=== PATIENT | female | born 1980 | race Caucasian/White ===

== ENCOUNTER 2017-10-30 20:35 | Emergency (ER) | payer OTHER ==
[~2017-10-30] VITALS: Ht 170.2 cm; Wt 90.7 kg
[~2017-10-30 20:35] MED LIST: BENTYL PO; BYSTOLIC10 MG PO; BYSTOLIC2.5 MG PO; CYCLOBENZAPRINE10 MG PO; HYDROCHLOROTHIAZIDE PO; KLOR-CON M1010 MEQ PO; SYNTHROID150 MCG PO; TRIAMTERENE-HC1 EAC2 PO; Z.0.ADDERALL 30 MG30 PO; Z.0.ORACEA40 MG PO; Z.0.SYNTHROID137 MCG; Z.0.VALTREX1000 MG; Z.1.HYDROCODON-ACE1
[2017-10-30 23:30] LABS: BASOPHILS # (AUTO) 0.1 (0.0-0.1); BASOPHILS % 0.6 % (0.0-1.0); EOSINOPHILS # (AUTO) 0.1 (0.0-0.4); HEMATOCRIT 36.4 % (34.2-44.1); HEMOGLOBIN 11.5 g/dL (12.0-16.0); LYMPHOCYTES # (AUTO) 3.3 (1.0-3.2); LYMPHOCYTES % 34.4 % (18.0-39.1); MEAN CORPUSCULAR HEMOGLOBIN 24.7 pg (28-32); MEAN CORPUSCULAR HGB CONC 31.6 g/dL (31-35); MEAN CORPUSCULAR VOLUME 78.3 fL (81-99); MONOCYTES # (AUTO) 0.7 (0.2-0.8); MONOCYTES % 7.1 % (4.4-11.3); NEUTROPHILS # (AUTO) 5.5 (2.1-6.9); NEUTROPHILS % 56.7 % (38.7-80.0); PLATELET COUNT 413 x10e3/uL (140-360); RED BLOOD COUNT 4.65 x10e6/uL (3.6-5.1); RED CELL DISTRIBUTION WIDTH 15.3 % (11.7-14.4)
[2017-10-30 23:36] LABS: BILIRUBIN,URINE NEGATIVE (NEGATIVE); CLARITY,URINE CLEAR (CLEAR); COLOR,URINE YELLOW (YELLOW); KETONES,URINE NEGATIVE (NEGATIVE); LEUKOCYTE ESTERASE ,URINE NEGATIVE (NEGATIVE); NITRITE,URINE NEGATIVE (NEGATIVE); PROTEIN,URINE DIPSTICK NEGATIVE (NEGATIVE); URINE UROBILINOGEN 0.2 mg/dL (0.2 - 1)
[2017-10-30 23:46] LABS: ALANINE AMINOTRANSFERASE 24 IU/L (0-55); ALBUMIN 4.3 g/dL (3.5-5.0); ALBUMIN/GLOBULIN RATIO 1.3 (0.8-2.0); ALKALINE PHOSPHATASE 61 IU/L (40-150); ANION GAP 14.9 mmol/L (8-16); BLOOD UREA NITROGEN 12 mg/dL (7-26); BUN/CREATININE RATIO 15 (6-25); CALCIUM 9.9 mg/dL (8.4-10.2); CARBON DIOXIDE 24 mmol/L (22-29); CHLORIDE 104 mmol/L (98-107); CREATININE, SERUM 0.82 mg/dL (0.57-1.11); EST GLOMERULAR FILTRATION RATE > 60 ML/MIN (60-); GLUCOSE 83 mg/dL (74-118); POTASSIUM 3.9 mmol/L (3.5-5.1); SODIUM 139 mmol/L (136-145)
[2017-10-30 23:50] LABS: BACTERIA,URINE RARE /HPF; EPITHELIAL CELLS,URINE RARE /LPF
--- NOTE | 2017-10-31 00:50 | Diagnostic Imaging Report ---
EXAM: US PELVIC DOPPLER LTD, US TRANSVAGINAL INDICATION: Heavy abnormal bleeding, right lower quadrant pain, evaluate for torsion COMPARISON: None TECHNIQUE: Grayscale transverse and sagittal transabdominal and transvaginal images were obtained of the pelvis. Transvaginal images were necessary to better assess anatomic detail. The ovaries were examined with grayscale, color Doppler, and spectral waveform analysis. FINDINGS: Uterus Orientation: retropositioned Size: 9 x 4.7 x 6 cm, heterogeneous echotexture Mass: Ill-defined hypoechoic area posterior to the endometrium measuring approximately 2 x 1.7 x 1.2 cm Cervix: Normal Endometrium: Thickness:0.9 cm, Normal. Appearance: Homogeneous echotexture without focal thickening. Right ovary: Size: 6.8 x 4.0 x 4.9 cm Mass/Cyst: Simple 5.6 x 2.7 x 4.3 cm right ovarian cyst Vascularity: Normal venous and arterial color flow and waveforms. Left ovary: Size: 3.1 x 1.8 x 1.9 cm Mass/Cyst: None Vascularity: Normal venous and arterial color flow and waveforms. Adnexa: Normal Cul-de-sac: No free fluid IMPRESSION: 1. Findings which can be seen with adenomyosis. Focal 2 cm posterior adenomyoma or fibroid. Consider nonemergent MRI for further assessment. 2. Asymmetric enlargement of the right ovary by a 5.6 cm simple cyst. Cannot entirely exclude intermittent torsion/detorsion in the proper clinical setting. Signed by: Dr Camryn Montiel MD on 10/31/2017 12:47 AM
[2017-10-31 01:01] VITALS: BP 128/80
== END 2017-10-31 01:16 | disposition home or self-care (01) ==
LOC: ER 20:35
DX: N93.8 Other specified abnormal uterine and vaginal bleeding (principal); N83.201 Unspecified ovarian cyst, right side
CPT/HCPCS: 36415; 76830; 80053; 81001; 84702; 85025; 93976; 99283

== ENCOUNTER → 2020-02-26 | Day surgery (SDC) | payer OTHER ==
[~2020-02-26] MED LIST changes: +EPHEDRINE SULFATE INJ 50 MG/ML VIAL ONE; +FENTANYL CITRATE/PF 100MCG/2 ML INJ ONE; +HYOSCYAMINE 0.125 MG TAB ONE; +LIDOCAINE HCL 2% LOCAL INJ 5 ML SDV VIAL INJ ONE; +METOCLOPRAMIDE HCL 10 MG/2ML VIAL ONE; +MIDAZOLAM HCL 2 MG/2 ML VIAL ONE; +PANTOPRAZOLE 40 MG 10ML VIAL ONE; +PROPOFOL IV EMULSION 10 MG/ML 20 ML VIAL ONE; +VICTOZA 2-0.6 MG/0.1 SC
[2020-02-26 15:20] VITALS: BP 105/55
== END | disposition home or self-care (01) ==
LOC: OR 12:15
PROVIDERS: ATTEND Internal Medicine Gastroenterology
DX: K59.09 Other constipation (principal); K29.50 Unspecified chronic gastritis without bleeding; K21.00 Gastro-esophageal reflux disease with esophagitis, without bleeding; K22.8 Other specified diseases of esophagus; K63.89 Other specified diseases of intestine; K64.8 Other hemorrhoids; E11.9 Type 2 diabetes mellitus without complications; E03.9 Hypothyroidism, unspecified; F41.9 Anxiety disorder, unspecified; I10 Essential (primary) hypertension; Z88.0 Allergy status to penicillin; Z91.040 Latex allergy status; Z01.810 Encounter for preprocedural cardiovascular examination; Z01.812 Encounter for preprocedural laboratory examination; Z11.59 Encounter for screening for other viral diseases; Z68.41 Body mass index [BMI] 40.0-44.9, adult; Z80.0 Family history of malignant neoplasm of digestive organs
CPT/HCPCS: 36415; 43239; 43450; 45380; 81025; 82948; 93005; C9113; J2001; J2250; J2704; J2765; J3010; U0002; 45378